=== PATIENT | male | born 1950 | race Hispanic/Latino ===

== ENCOUNTER → 2024-05-21 | Outpatient (REF) | payer MEDICARE ==
[~2024-05-21] MED LIST: ASPIRIN81 MG PO; ATORVASTATIN CA20 MG PO; CLOPIDOGREL75 MG PO; DIOVAN160 MG PO; HUMALOG MI100 UNIT/2 SQ; HYDROCODON-ACE1 EA12 PO; METOPROLOL TART50 MG PO; NEURONTIN100 MG PO; TOUJEO SOL300 UNIT/1; TRADJENTA5 MG; VITAMIN D250 MCG
== END ==
LOC: MRI 09:00
PROVIDERS: ATTEND Family Medicine
DX: M47.816 Spondylosis without myelopathy or radiculopathy, lumbar region (principal); M51.27 Other intervertebral disc displacement, lumbosacral region
CPT/HCPCS: 72148

== ENCOUNTER → 2024-08-16 | Outpatient (REF) | payer MEDICARE | LOC: MRI 07:52 | PROVIDERS: ATTEND Family Medicine | DX: M54.17 Radiculopathy, lumbosacral region (principal) | CPT/HCPCS: 72148 ==